=== PATIENT | female | born 1965 | race Hispanic/Latino ===

== ENCOUNTER 2023-09-29 06:00 | Day surgery (SDC) | payer BC ==
[2023-09-29] VITALS (11 sets, daily range): BP systolic 110–152; BP diastolic 72–96; PULSE 65–94; RESP 16–18
[~2023-09-29] VITALS: Ht 149.9 cm; Wt 83.6 kg
[~2023-09-29 06:00] MED LIST: AMLODIPINE PO; ASCO500C18 PO; BENAZEPRIL PO; CHOL500051 PO; HYDR25TA PO; MULT-1401 PO; PSYL1CAP2 PO; ROSU10TA28 PO; VITA-388 PO
[2023-09-29] MEDS ORDERED: 0.9%NACL 1000ML 1,000 ML IV ONE (06:06)
[2023-09-29] MEDS ORDERED: PROPOFOL 10 MG/ML 20ML VIAL IV ONE (07:37)
== END 2023-09-29 09:11 | disposition home or self-care (01) ==
LOC: ENDO 06:00 → DAH 06:00 → ENDO 09:11
PROVIDERS: ATTEND Internal Medicine Gastroenterology
DX: Z12.11 Encounter for screening for malignant neoplasm of colon (principal); K57.30 Diverticulosis of large intestine without perforation or abscess without bleeding; I10 Essential (primary) hypertension; E78.00 Pure hypercholesterolemia, unspecified; E66.9 Obesity, unspecified; Z98.890 Other specified postprocedural states; Z79.899 Other long term (current) drug therapy; Z86.010 Personal history of colon polyps; Z68.37 Body mass index [BMI] 37.0-37.9, adult
CPT/HCPCS: 81025; 45378; J7030 ×2; J2704; A4620; A4215 ×2; A4223; A7002; A4222; A4221; A4663; A4606; J3490